=== PATIENT | male | born 1960 | race Caucasian/White ===

== ENCOUNTER 2017-04-13 11:12 | Day surgery (SDC) | payer OTHER ==
[~2017-04-13] VITALS: Ht 182.9 cm; Wt 83.6 kg
[~2017-04-13 11:12] MED LIST: ACYC800T PO; ASCO500 PO; ASPI81 PO; BUPIVACAINE HCL/PF 0.5% 30 ML VIAL ONE; CYAN250014 PO; CeFAZolin 2 GM/DEXTROSE 50 ML IV ONE; DILT120C3 PO; ESZO3 PO; FISH1CAP63 PO; FLAX100020 PO; GUM MASTIC/STORAX/MSAL/ALCOHOL LIQUID 0.67 ML VIAL TP ONE; LIDOCAINE HCL 2%/EPI 1:200,000/PF 10 ML VIAL ONE; LISI-662 PO; METF500T4 PO; METO50TA12 PO; MULT-1297 PO; OMEP20 PO; RINGERS SOLUTION,LACTATED 1,000 ML IV ONE; RIVA20TA PO; SIMV-260 PO; VITA100T5 PO; [UNRECOGNIZED DRUG - CODE] PO; [UNRECOGNIZED DRUG - CODE] PO
[2017-04-13] MEDS ORDERED: FentaNYL CITRATE-PF 100 MCG/2 ML VIAL IVP ONE (11:13)
[2017-04-13] MEDS ORDERED: MIDAZOLAM HCL 2 MG/2 ML VIAL IVP ONE (11:13)
[2017-04-13] MEDS ORDERED: LIDOCAINE HCL/PF 2% 5 ML VIAL IM ONE (11:13)
[2017-04-13] MEDS ORDERED: EPINEPHrine 1:1,000 [1 MG/ML] AMP IM ONE (11:13)
[2017-04-13] MEDS ORDERED: SUCCINYLCHOLINE CHLORIDE 20 MG/ML 10 ML VIAL IVP ONE (11:13)
[2017-04-13] MEDS ORDERED: ONDANSETRON HCL 4 MG/2 ML VIAL IVP ONE (11:13)
[2017-04-13] MEDS ORDERED: DEXAMETHASONE SOD PHOS 4 MG/ML VIAL IVP ONE (11:13)
[2017-04-13] MEDS ORDERED: PROPOFOL 1% 20 ML VIAL IVP ONE (11:13)
[2017-04-13 11:44] LABS: BASOPHILS # (AUTO) 0.05 K/uL (0.00-0.20); BASOPHILS % (AUTO) 0.7 % (0.0-2.0); EOSINOPHILS # (AUTO) 0.43 K/uL (0.00-0.70); EOSINOPHILS % (AUTO) 6.29 % (1.0-6.0); HEMATOCRIT 40.1 % (41-53); HEMOGLOBIN 13.7 g/dL (13.5-17.5); LYMPHOCYTES # (AUTO) 1.8 K/uL (1.0-4.8); LYMPHOCYTES % (AUTO) 26.6 % (22.0-44.0); MEAN CORPUSCULAR HEMOGLOBIN 29.7 pg (26.0-34.0); MEAN CORPUSCULAR HGB CONC 34.3 G/dL (31.0-37.0); MEAN CORPUSCULAR VOLUME 87 fL (80-100); MONOCYTES # (AUTO) 0.6 K/uL (0.1-1.0); MONOCYTES % (AUTO) 9.3 % (2.0-9.0); NEUTROPHILS % (AUTO) 57.2 % (40.0-70.0); PLATELET COUNT (AUTO) 289 K/uL (150-450); RED BLOOD CELL COUNT(AUTO) 4.62 MIL/uL (4.50-5.90); RED CELL DISTRIBUTION WIDTH 13.3 % (11.5-14.5); WHITE BLOOD COUNT (AUTO) 6.9 K/uL (4.5-11.0)
[2017-04-13 11:53] LABS: ANION GAP 8 mmol/L (8-16); CALCIUM, TOTAL 9.1 mg/dL (8.8-10.5); CARBON DIOXIDE 29 mmol/L (22-29); CHLORIDE 101 mmol/L (98-107); CREATININE 0.79 mg/dL (0.60-1.30); GLOMERULAR FILTR. RATE CALC > 60 mL/min (>60); POTASSIUM 4.3 mmol/L (3.5-5.1); SODIUM SERUM 138 mmol/L (136-145); UREA NITROGEN, BLOOD 14 mg/dL (7-18)
[2017-04-13] MEDS ORDERED: RINGERS SOLUTION,LACTATED 1,000 ML IV ONE (13:00)
[2017-04-13] MEDS ORDERED: HYDROCODONE/ACETAMINOPHEN 5-325 MG TABLET PO PRN (14:00)
[2017-04-13] MEDS ORDERED: ACETAMINOPHEN 500 MG TABLET PO PRN (14:00)
[2017-04-13] MEDS ORDERED: IBUPROFEN 800 MG TABLET PO PRN (14:00)
[2017-04-13] MEDS ORDERED: FentaNYL CITRATE-PF 100 MCG/2 ML VIAL IVP PRN (14:00)
[2017-04-13] MEDS ORDERED: MEPERIDINE-PF 25 MG/ML SYRINGE IVP PRN (14:00)
[2017-04-13] MEDS ORDERED: HYDROmorphone 2 MG/ML SYRINGE IVP PRN (14:00)
[2017-04-13] MEDS ORDERED: HYDROmorphone 2 MG/ML SYRINGE ONE (14:01)
== END 2017-04-13 15:25 | disposition home or self-care (01) ==
LOC: SURGERY 11:12 → EDSEX 11:12 → SURGERY 15:25
PROVIDERS: ATTEND Surgery
DX: K40.90 Unilateral inguinal hernia, without obstruction or gangrene, not specified as recurrent (principal); I10 Essential (primary) hypertension; E78.5 Hyperlipidemia, unspecified; E03.9 Hypothyroidism, unspecified; I48.92 Unspecified atrial flutter; F41.9 Anxiety disorder, unspecified; E11.9 Type 2 diabetes mellitus without complications; Z79.01 Long term (current) use of anticoagulants; Z98.890 Other specified postprocedural states; Z87.891 Personal history of nicotine dependence
CPT/HCPCS: 36415; 49650; 80048; 85025; 93005; C1781; J0171; J0330; J0690; J1100; J1170; J2250; J2405; J2704; J3010; J3490 ×3; J7120

== ENCOUNTER 2023-06-12 05:42 | Day surgery (SDC) | payer OTHER, MEDICAID ==
[~2023-06-12] VITALS: Ht 182.9 cm; Wt 83.6 kg
[~2023-06-12 05:42] MED LIST changes: -ACYC800T PO; +ASPI-1450 PO; -ASPI81 PO; -BUPIVACAINE HCL/PF 0.5% 30 ML VIAL ONE; +CYAN250010 PO; -CYAN250014 PO; +CYCLOPENTOLATE HCL 1% 2 ML OPHTHALMIC SOLUTION ONE; -CeFAZolin 2 GM/DEXTROSE 50 ML IV ONE; +DILT-39 PO; -DILT120C3 PO; -ESZO3 PO; +ESZO3TAB53 PO; -GUM MASTIC/STORAX/MSAL/ALCOHOL LIQUID 0.67 ML VIAL TP ONE; +KETOROLAC TROMETHAMINE 0.5% 5 ML OPHTHALMIC SOLUTION ONE; -LIDOCAINE HCL 2%/EPI 1:200,000/PF 10 ML VIAL ONE; -LISI-662 PO; +LISI-894 PO; +METF-1211 PO; -METF500T4 PO; +METO-558 PO; -METO50TA12 PO; +MOXIFLOXACIN HCL 0.5% 3 ML OPHTHALMIC SOLUTION ONE; +PHENYLEPHRINE HCL 2.5% 2 ML OPHTHALMIC SOLUTION ONE; -RINGERS SOLUTION,LACTATED 1,000 ML IV ONE; +RINGERS SOLUTION,LACTATED 500 ML IV ONE; +TETRACAINE HCL/PF 0.5% 4 ML OPHTHALMIC SOLUTION ONE; +TROPICAMIDE 1% 2 ML OPHTHALMIC SOLUTION ONE; +UBID200C37 PO; -[UNRECOGNIZED DRUG - CODE] PO
[2023-06-12] MEDS ORDERED: TETRACAINE HCL/PF 0.5% 4 ML OPHTHALMIC SOLUTION ONE (05:58)
[2023-06-12] MEDS ORDERED: EPINEPHrine 1:1,000 [1 MG/ML] VIAL ONE (05:59)
[2023-06-12] MEDS ORDERED: TETRACAINE HCL/PF 0.5% 4 ML OPHTHALMIC SOLUTION OD ONE (06:00)
[2023-06-12] MEDS ORDERED: LIDOCAINE/PF 1% 2 ML VIAL ONE (06:00)
[2023-06-12] MEDS ORDERED: PROPARACAINE HCL 0.5% 15 ML OPHTHALMIC SOLUTION OD ONE (06:00)
[2023-06-12] MEDS ORDERED: BALANCED SALT 15 ML OPHTHALMIC IRRIG.SOLN ONE (06:07)
[2023-06-12] MEDS ORDERED: POVIDONE-IODINE 5% 30 ML OPHTHALMIC SOLUTION ONE (06:08)
[2023-06-12] MEDS ORDERED: PrednisoLONE ACETATE 1% 5 ML OPHTHALMIC SUSPENSION ONE (06:24)
[2023-06-12] MEDS: KETOROLAC TROMETHAMINE 0.5% 5 ML OPHTHALMIC SOLUTION OD SCH ×3 (06:39→06:58)
[2023-06-12] MEDS: MOXIFLOXACIN HCL 0.5% 3 ML OPHTHALMIC SOLUTION OD SCH ×3 (06:40→06:59)
[2023-06-12] MEDS: CYCLOPENTOLATE HCL 1% 2 ML OPHTHALMIC SOLUTION OD SCH ×3 (06:41→06:59)
[2023-06-12] MEDS: TROPICAMIDE 1% 2 ML OPHTHALMIC SOLUTION OD SCH ×3 (06:41→06:59)
[2023-06-12] MEDS: PHENYLEPHRINE HCL 2.5% 2 ML OPHTHALMIC SOLUTION OD SCH ×3 (06:42→06:59)
[2023-06-12] MEDS: TETRACAINE HCL/PF 0.5% 4 ML OPHTHALMIC SOLUTION OD SCH ×2 (06:53→07:00)
[2023-06-12 07:31] LABS: GLUCOMETER DEV NAME(LOC) SDS.; GLUCOSE,POINT OF CARE 183 MG/DL (70-110)
[2023-06-12] MEDS ORDERED: MIDAZOLAM HCL 2 MG/2 ML VIAL IVP ONE (12:00)
[2023-06-12] MEDS ORDERED: FentaNYL CITRATE PF 100 MCG/2 ML VIAL IVP ONE (12:00)
== END 2023-06-12 09:25 | disposition home or self-care (01) ==
LOC: SURGERY 05:42
PROVIDERS: ATTEND Ophthalmology
DX: E11.22 Type 2 diabetes mellitus with diabetic chronic kidney disease (principal); H25.11 Age-related nuclear cataract, right eye; I10 Essential (primary) hypertension; I48.92 Unspecified atrial flutter; E03.9 Hypothyroidism, unspecified; Z79.84 Long term (current) use of oral hypoglycemic drugs; Z79.899 Other long term (current) drug therapy
CPT/HCPCS: 93005; 82962; 66984; J0171; J3010; J3490; J2250; Q9967; J7120; V2632

== ENCOUNTER 2023-07-10 05:21 | Day surgery (SDC) | payer OTHER, MEDICAID ==
[~2023-07-10] VITALS: Ht 182.9 cm; Wt 83.6 kg
[2023-07-10] MEDS ORDERED: TETRACAINE HCL/PF 0.5% 4 ML OPHTHALMIC SOLUTION OD ONE (06:00)
[2023-07-10] MEDS: CYCLOPENTOLATE HCL 1% 2 ML OPHTHALMIC SOLUTION OD SCH ×3 (06:00→06:19)
[2023-07-10] MEDS: TROPICAMIDE 1% 2 ML OPHTHALMIC SOLUTION OD SCH ×3 (06:00→06:19)
[2023-07-10] MEDS ORDERED: PROPARACAINE HCL 0.5% 15 ML OPHTHALMIC SOLUTION OD ONE (06:00)
[2023-07-10] MEDS: PHENYLEPHRINE HCL 2.5% 2 ML OPHTHALMIC SOLUTION OD SCH ×3 (06:01→06:19)
[2023-07-10] MEDS: TETRACAINE HCL/PF 0.5% 4 ML OPHTHALMIC SOLUTION OD SCH ×3 (06:01→06:19)
[2023-07-10] MEDS: KETOROLAC TROMETHAMINE 0.5% 5 ML OPHTHALMIC SOLUTION OD SCH ×3 (06:01→06:19)
[2023-07-10] MEDS: MOXIFLOXACIN HCL 0.5% 3 ML OPHTHALMIC SOLUTION OD SCH ×3 (06:02→06:23)
[2023-07-10] MEDS ORDERED: BALANCED SALT 15 ML OPHTHALMIC IRRIG.SOLN ONE (06:16)
[2023-07-10] MEDS ORDERED: TETRACAINE HCL/PF 0.5% 4 ML OPHTHALMIC SOLUTION ONE (06:17)
[2023-07-10] MEDS ORDERED: LIDOCAINE/PF 1% 2 ML VIAL ONE (06:18)
[2023-07-10] MEDS ORDERED: EPINEPHrine 1:1,000 [1 MG/ML] VIAL ONE (06:21)
[2023-07-10] MEDS ORDERED: NEOMYCIN/POLYMYXIN B/DEXAMETH 3.5 GM OPHTHALMIC OINTMENT ONE (06:21)
[2023-07-10 06:27] LABS: GLUCOMETER DEV NAME(LOC) SDS.; GLUCOSE,POINT OF CARE 156 MG/DL (70-110)
[2023-07-10] MEDS ORDERED: PrednisoLONE ACETATE 1% 5 ML OPHTHALMIC SUSPENSION ONE (06:31)
[2023-07-10] MEDS ORDERED: POVIDONE-IODINE 5% 30 ML OPHTHALMIC SOLUTION ONE (07:07)
[2023-07-10] MEDS ORDERED: BALANCED SALT 15 ML OPHTHALMIC IRRIG.SOLN OD ONE (12:00)
[2023-07-10] MEDS ORDERED: FentaNYL CITRATE PF 100 MCG/2 ML VIAL IVP ONE (12:00)
[2023-07-10] MEDS ORDERED: MIDAZOLAM HCL 2 MG/2 ML VIAL IVP ONE (12:00)
[2023-07-10] MEDS ORDERED: HYALURONATE SOD 8.5MG/0.85ML 10 MG/ML SYRINGE IO ONE (12:00)
== END 2023-07-10 09:00 | disposition home or self-care (01) ==
LOC: SURGERY 05:21
PROVIDERS: ATTEND Ophthalmology
DX: H59.021 Cataract (lens) fragments in eye following cataract surgery, right eye (principal); E11.36 Type 2 diabetes mellitus with diabetic cataract; E03.9 Hypothyroidism, unspecified; E78.00 Pure hypercholesterolemia, unspecified; I48.92 Unspecified atrial flutter; H40.059 Ocular hypertension, unspecified eye; Z79.899 Other long term (current) drug therapy; I10 Essential (primary) hypertension; Z87.891 Personal history of nicotine dependence
CPT/HCPCS: 66840; 82962; J0171; J3010; J3490; J2250; Q9967; J7120

== ENCOUNTER 2023-09-11 05:31 | Day surgery (SDC) | payer OTHER, MEDICAID ==
[~2023-09-11] VITALS: Ht 182.9 cm; Wt 81.8 kg
[~2023-09-11 05:31] MED LIST changes: -ASCO500 PO; -ASPI-1450 PO; -CYAN250010 PO; -DILT-39 PO; +FAMO20 PO; -MULT-1297 PO; -OMEP20 PO; -UBID200C37 PO; -VITA100T5 PO
[2023-09-11] MEDS ORDERED: FentaNYL CITRATE PF 100 MCG/2 ML VIAL IVP ONE (05:32)
[2023-09-11] MEDS ORDERED: MIDAZOLAM HCL 2 MG/2 ML VIAL IVP ONE (05:32)
[2023-09-11] MEDS ORDERED: PROPARACAINE HCL 0.5% 15 ML OPHTHALMIC SOLUTION ONE (05:40)
[2023-09-11 06:06] LABS: GLUCOMETER DEV NAME(LOC) SDS.; GLUCOSE,POINT OF CARE 171 MG/DL (70-110)
[2023-09-11] MEDS: RINGERS SOLUTION,LACTATED 500 ML IV ONE (06:11)
[2023-09-11] MEDS: TETRACAINE HCL/PF 0.5% 4 ML OPHTHALMIC SOLUTION OS ONE (06:11)
[2023-09-11] MEDS: MOXIFLOXACIN HCL 0.5% 3 ML OPHTHALMIC SOLUTION OS SCH (06:12)
[2023-09-11] MEDS: KETOROLAC TROMETHAMINE 0.5% 5 ML OPHTHALMIC SOLUTION OS SCH (06:12)
[2023-09-11] MEDS: CYCLOPENTOLATE HCL 1% 2 ML OPHTHALMIC SOLUTION OS SCH (06:12)
[2023-09-11] MEDS: PROPARACAINE HCL 0.5% 15 ML OPHTHALMIC SOLUTION OS ONE (06:12)
[2023-09-11] MEDS: PHENYLEPHRINE HCL 2.5% 2 ML OPHTHALMIC SOLUTION OS SCH (06:13)
[2023-09-11] MEDS: TROPICAMIDE 1% 2 ML OPHTHALMIC SOLUTION OS SCH (06:13)
[2023-09-11] MEDS: TETRACAINE HCL/PF 0.5% 4 ML OPHTHALMIC SOLUTION OS SCH (06:18)
[2023-09-11] MEDS ORDERED: TETRACAINE HCL/PF 0.5% 4 ML OPHTHALMIC SOLUTION ONE (06:22)
[2023-09-11] MEDS ORDERED: NEOMYCIN/POLYMYXIN B/DEXAMETH 3.5 GM OPHTHALMIC OINTMENT ONE (06:22)
[2023-09-11] MEDS ORDERED: LIDOCAINE/PF 1% 2 ML VIAL ONE (06:22)
[2023-09-11] MEDS ORDERED: EPINEPHrine 1:1,000 [1 MG/ML] VIAL ONE (06:22)
[2023-09-11] MEDS ORDERED: BALANCED SALT 15 ML OPHTHALMIC IRRIG.SOLN ONE (06:23)
[2023-09-11] MEDS ORDERED: PrednisoLONE ACETATE 1% 5 ML OPHTHALMIC SUSPENSION ONE (06:33)
== END 2023-09-11 09:05 | disposition home or self-care (01) ==
LOC: SURGERY 05:31
PROVIDERS: ATTEND Ophthalmology
DX: E11.36 Type 2 diabetes mellitus with diabetic cataract (principal); H25.12 Age-related nuclear cataract, left eye; I10 Essential (primary) hypertension; E03.9 Hypothyroidism, unspecified; Z79.84 Long term (current) use of oral hypoglycemic drugs
CPT/HCPCS: 66982; 82962; J0171; J3010; J3490; J2250; J7120; V2632